=== PATIENT | male | born 2000 | race Caucasian/White ===

== ENCOUNTER 2022-11-29 08:19 | Emergency (ER) | payer OTHER, SELFPAY ==
[2022-11-29 08:27] VITALS: PULSE 75; O2SAT 97
[2022-11-29 08:30] VITALS: BP 134/86; PULSE 82; PULSE 85; RESP 16; TEMP 36.9; O2SAT 97; BMI 25.8
[2022-11-29] MEDS: ONDANSETRON 4 MG ODT SL (08:39)
--- NOTE | 2022-11-29 08:54 | ED_ITS ---
HPI - Nausea/Vomiting/Diarrhea General Chief complaint: Nausea/Vomiting/Diarrhea Stated complaint: fever/sore throat/chills/V T-4 Time Seen by Provider: 11/29/22 08:45 Source: patient Mode of arrival: Ambulatory History of Present Illness HPI Narrative: Patient is a 22-year-old healthy male presents with 3-4 days of viral-like symptoms. He is had headache sore throat body aches and fever. He said his fever broke last night thought he could go to work today he started vomiting. He is not dizzy or lightheaded. He does not have any abdominal pain or diarrhea. He is had a decrease in appetite he feels his nose is very congested. He denies any shortness of breath. He says his sore throat is better his headache is slightly better. He has been taking Tylenol and ibuprofen around the clock. No chest pain palpitations or other symptoms Related Data Previous Rx's Medication Instructions Recorded ondansetron 4 mg disintegrating 4 mg PO Q8H PRN nausea and 11/29/22 tablet vomiting #10 tabs Allergies Allergy/AdvReac Type Severity Reaction Status Date / Time azithromycin Allergy Hives Verified 11/29/22 08:33 Review of Systems Review of Systems ROS Unobtainable: All systems reviewed & are unremarkable except as noted in HPI and below Patient History Social History Smoking Status: Former smoker Smoking Status: Former smoker alcohol intake frequency: 0-2 drinks per day Substance Use Type: marijuana Exam Initial Vital Signs Initial Vital Signs: Vital Signs Pulse Rate 75 11/29/22 08:27 Pulse Oximetry 97 11/29/22 08:27 GENERAL: Alert 22-year-old male and in no acute distress. HEENT: Head atraumatic,EOMI, pupils reactive, face symmetric, moist mucous membranes PHARYNX: No erythema, no tonsillar exudate, no cervical lymphadenopathy CARDIOVASCULAR: Regular rate and rhythm without murmurs, rubs or gallops. RESPIRATORY: Breath sounds equal bilaterally, no wheezes rales or rhonchi. No r espiratory distress ABDOMEN: Soft, nontender. Normoactive bowel sounds all 4 quadrants. No guarding or rebound. EXTREMITIES: Normal range of motion, no clubbing or edema. Neurovascularly intact NEUROLOGICAL: Alert and oriented x4. SKIN: Warm, dry, no laceration, no petechiae, no rashes or lesions. Course Orders Ordered: ED Orders 11/29/22 09:06 Covid-19 + FLU A/B + RSV - PCR Stat Discontinued Medications Ondansetron HCl (Ondansetron 4 Mg Odt) 4 mg SL NOW PRN PRN Reason: Nausea And Vomiting Last Admin: 11/29/22 08:39 Dose: 4 mg Documented By: LUIS Vital Signs Vital signs: Vital Signs - 8 hr 11/29/22 08:30 11/29/22 08:27 11/29/22 08:30 Temperature 98.5 F Pulse Rate 85 75 82 Respiratory Rate 16 Blood Pressure 134/86 Pulse Oximetry 97 97 97 Oxygen Delivery Method Room Air 11/29/22 09:00 11/29/22 09:30 11/29/22 09:57 Temperature Pulse Rate 83 63 Respiratory Rate Blood Pressure 132/72 Pulse Oximetry 98 97 Oxygen Delivery Method MDM - Nausea/Vomiting/Diarrhea Lab Data Labs: Lab Results 11/29/22 Range/Units 09:06 SARS-CoV-2 (PCR) Positive H (Negative) Influenza A (RT-PCR) Flu a negative (NEGATIVE) Influenza B (RT-PCR) Flu b negative (NEGATIVE) RSV (PCR) Negative (Negative) MDM Narrative Medical decision making narrative: Patient is a healthy 22-year-old male with upper respiratory like symptoms. He would some nausea vomiting today at work. His vitals are stable he is given Zofran in the ED he tolerating fluids. His respiratory panel is positive for COVID which is consistent with his symptoms. At this time he does not meet any admission criteria. There is no reason to do further workup or evaluation Discharge Plan Departure Patient Disposition: Home Clinical Impression: COVID-19 Activity Restrictions/Additional Instructions: *You have been diagnosed with COVID *What to do: Increase fluids as tolerated fever control needed. You can not go back to work until you have been fever free for 24-48 hours without medication *Continue to take medications as directed Zofran 4 mg every 8 hours if needed for nausea or vomiting *Follow up with your primary care provider in 2-3 days or call [phone] *Return to ER if you should have persistent vomiting dizziness lightheadedness [or] any new, worsening or concerning symptoms Prescriptions: New ondansetron 4 mg tablet,disintegrating 4 mg PO Q8H PRN (Reason: nausea and vomiting) Qty: 10 0RF Referrals: Miscellaneous,Doctor, MD [Primary Care Provider] - Stand Alone Forms: Patient Portal/API, Work Release Note
[2022-11-29 09:00] VITALS: PULSE 83; O2SAT 98
[2022-11-29 09:30] VITALS: PULSE 63; O2SAT 97
[2022-11-29 09:49] LABS: Influenza A - CEPHEID Flu A NEGATIVE (NEGATIVE); Influenza B - CEPHEID Flu B NEGATIVE (NEGATIVE); Respiratory Syncytial Virus Negative (Negative)
[2022-11-29 09:54] LABS: COVID-19 CEPHEID 4-PLEX PCR POSITIVE (Negative)
[2022-11-29 09:57] VITALS: BP 132/72
== END 2022-11-29 10:05 | disposition home or self-care (01) ==
PROVIDERS: Emergency Provider Emergency Medicine
DX: U07.1 COVID-19 (principal)
CPT/HCPCS: 0241U; 99282; 99283